=== PATIENT | male | born 1960 | race Caucasian/White ===

== ENCOUNTER 2018-12-13 08:15 | Outpatient (CLI) | payer MEDICAID, SELFPAY ==
[2018-12-13 10:02] LABS: Anion Gap 12.4 mmol/L (3-11); BUN 15 mg/dL (7-18); CO2 27.6 mmol/L (21.0-32.0); Calcium 9.2 mg/dL (8.5-10.1); Calculated LDL 59 mg/dL; Chloride 103 mmol/L (98-107); Cholesterol 101 mg/dL (50-200); Glucose 83 mg/dL (70-100); HDL Cholesterol 34 mg/dL (40-60); Potassium 3.7 mmol/L (3.5-5.1); Sodium 143 mmol/L (136-145); Triglyceride 43 mg/dL (30-150)
== END 2018-12-13 08:35 ==
PROVIDERS: PCP Internal Medicine; Visit Provider Internal Medicine
DX: E78.5 Hyperlipidemia, unspecified (principal); I10 Essential (primary) hypertension; E11.65 Type 2 diabetes mellitus with hyperglycemia
CPT/HCPCS: 36415; 80048; 80061; 83721

== ENCOUNTER 2020-01-06 21:19 | Outpatient (REF) | payer MEDICAID, SELFPAY ==
[2020-01-06 20:10] LABS: BUN 17 mg/dL (7-18); CREATININE 1.06 mg/dL (0.70-1.30); Chloride 103 mmol/L (98-107); Glucose 92 mg/dL (74-106); Potassium 3.8 mmol/L (3.5-5.1); Sodium 139 mmol/L (136-145)
== END 2020-01-06 21:39 ==
LOC: NCHCN 21:19
PROVIDERS: PCP Internal Medicine; Visit Provider Internal Medicine
DX: E11.65 Type 2 diabetes mellitus with hyperglycemia (principal); I10 Essential (primary) hypertension; E78.5 Hyperlipidemia, unspecified; E66.9 Obesity, unspecified
CPT/HCPCS: 80048

== ENCOUNTER 2021-02-25 14:12 | Outpatient (REF) | payer MEDICAID, SELFPAY ==
[2021-02-25 14:54] LABS: ALT 31 U/L (16-63); AST 17 U/L (15-37); Albumin 4.4 g/dL (3.4-5.0); Alkaline Phosphatase 75 U/L (46-116); Anion Gap 7.2 mmol/L (3-11); BUN 17 mg/dL (7-18); Bilirubin, Total 0.5 mg/dL (0.2-1.0); CO2 29.8 mmol/L (21.0-32.0); CREATININE 1.1 mg/dL (0.70-1.30); Chloride 103 mmol/L (98-107); Glucose 160 mg/dL (74-106); Potassium 4.4 mmol/L (3.5-5.1); Sodium 140 mmol/L (136-145); Total Protein 8.5 g/dL (6.4-8.2)
[2021-02-25 15:19] LABS: Hemoglobin A1C 8.5 % (<5.7)
== END 2021-02-25 14:13 | disposition home or self-care (01) ==
LOC: NCHCN 14:12
PROVIDERS: PCP Internal Medicine; Visit Provider Family Medicine
DX: E11.65 Type 2 diabetes mellitus with hyperglycemia (principal); I10 Essential (primary) hypertension; E78.5 Hyperlipidemia, unspecified
CPT/HCPCS: 80053; 83036

== ENCOUNTER 2022-12-17 09:06 | Outpatient (REF) | payer MEDICAID, SELFPAY ==
[2022-12-17 15:01] LABS: Abs Immature Grans 0.04 10^3/uL (0.0-0.06); Absolute Basophil Count 0.15 10^3/uL (0.0-0.2); Absolute Eosinophil Count 0.58 10^3/uL (0.0-0.7); Absolute Lymphocyte Count 2.14 10^3/uL (1.2-3.4); Absolute Monocyte Count 0.85 10^3/uL (0.1-0.8); Absolute Neutrophil Count 6.63 10^3/uL (1.2-6.7); Basophils % 1.4; Eosinophils % 5.6; HGB 17.1 g/dL (13.5-17.5); Immature Grans % 0.4; Lymphocytes % 20.6; MCH 26.8 pg (27.0-33.0); MCHC 33.5 % (32.0-36.0); MCV 80 fL (80-95); MPV 10.6 fL (8.0-11.0); Monocytes % 8.2; Neutrophils % 63.8; Platelet Count 198 10^3/uL (130-400); RBC 6.39 10^6/uL (4.36-5.78); RDW 14.2 % (11.8-14.1); RDW-SD 40.8 fL; WBC 10.39 10^3/uL (4.4-10.8)
[2022-12-17 15:28] LABS: Diff Comment RBC Morph Reviewed; RBC Morphology Normal
[2022-12-17 15:53] LABS: ALT 37 U/L (16-63); AST 26 U/L (15-37); Albumin 4.4 g/dL (3.4-5.0); Alkaline Phosphatase 76 U/L (46-116); Anion Gap 11.6 mmol/L (3-11); BUN 15 mg/dL (7-18); Bilirubin, Total 0.6 mg/dL (0.2-1.0); CO2 26.4 mmol/L (21.0-32.0); Calcium 9.9 mg/dL (8.5-10.1); Chloride 103 mmol/L (98-107); Estimated GFR 85.63 (mL/min/1.73m2); Glucose 100 mg/dL (74-106); Potassium 3.9 mmol/L (3.5-5.1); Sodium 141 mmol/L (136-145); Total Protein 8.3 g/dL (6.4-8.2)
== END 2022-12-17 09:07 | disposition home or self-care (01) ==
LOC: NCHCN 09:06
PROVIDERS: PCP Internal Medicine; Visit Provider Family Medicine
DX: Z00.00 Encounter for general adult medical examination without abnormal findings (principal); I10 Essential (primary) hypertension; E11.9 Type 2 diabetes mellitus without complications; E66.9 Obesity, unspecified
CPT/HCPCS: 80053; 85025

== ENCOUNTER 2024-03-23 18:45 | Outpatient (REF) | payer MEDICAID, SELFPAY ==
[2024-03-23 20:42] LABS: HCT 48.7 % (40.0-50.0); HGB 16.3 g/dL (13.5-17.5); MCH 27.7 pg (27.0-33.0); MCHC 33.5 % (32.0-36.0); MCV 83 fL (80-95); MPV 10.6 fL (8.0-11.0); Platelet Count 193 10^3/uL (130-400); RBC 5.89 10^6/uL (4.36-5.78); RDW 13.6 % (11.8-14.1); RDW-SD 41.1 fL; WBC 13.02 10^3/uL (4.4-10.8)
[2024-03-23 21:04] LABS: ALT 34 U/L (16-63); AST 23 U/L (15-37); Albumin 4.3 g/dL (3.4-5.0); Alkaline Phosphatase 72 U/L (46-116); BUN 19 mg/dL (7-18); Bilirubin, Total 0.54 mg/dL (0.2-1.0); Chloride 103 mmol/L (98-107); Glucose 106 mg/dL (74-106); LDL CHOLESTEROL 64 mg/dL (<100); Potassium 4.1 mmol/L (3.5-5.1); Sodium 143 mmol/L (136-145); Total Protein 8.2 g/dL (6.4-8.2)
[2024-03-23 21:27] LABS: Microalb ug/mg Crea 75.9 ug/mg Cr
== END 2024-03-23 18:46 | disposition home or self-care (01) ==
LOC: NCHCN 18:45
PROVIDERS: PCP Internal Medicine; Visit Provider Family Medicine
DX: I10 Essential (primary) hypertension (principal); E11.9 Type 2 diabetes mellitus without complications
CPT/HCPCS: 80053; 83721; 85027; 82043; 82570